=== PATIENT | male | born 1965 | race Caucasian/White ===

== ENCOUNTER → 2019-05-26 13:16 | Outpatient (CLI) | payer BC, SELFPAY ==
[2019-05-26 14:03] LABS: Basophils # 0.1 K/mm3 (0-0.2); Basophils % 0.9 % (0.1-2.0); Eosinophils # 0.2 K/mm3 (0.0-0.4); Eosinophils % 2.9 % (0.1-12.0); Hematocrit 46.9 % (42.0-52.0); Hemoglobin 15.1 g/dL (14.1-18.0); Lymphocytes # 2.1 K/mm3 (0.7-4.5); Lymphocytes % 25.3 % (10-50); Mean Corpuscular HGB Conc 32.2 g/dL (31.8-35.4); Mean Corpuscular Hemoglobin 27.9 pg (27.0-31.2); Mean Corpuscular Volume 86.7 fl (80-94); Mean Platelet Volume 8.5 fl (7.4-10.4); Monocytes # 0.5 K/mm3 (0.1-1.0); Monocytes % 6.3 % (1.7-9.3); Neutrophils # 5.4 K/mm3 (1.8-7.8); Neutrophils % 64.6 % (37.0-80.0); Platelet Count 167 K/mm3 (142-424); Red Cell Distribution Width 12.9 % (11.5-17.5); White Blood Count 8.3 K/mm3 (4.8-10.8)
[2019-05-26 14:29] LABS: Alanine Aminotransferase 32 U/L (12-78); Albumin Level 3.8 gm/dL (3.4-5.0); Alkaline Phosphatase 75 U/L (46-116); Anion Gap 11.5 mEq/L (5-15); Aspartate Amino Transferase 13 U/L (15-37); Bilirubin,Direct 0.2 mg/dL (0.0-0.2); Bilirubin,Total 1.2 mg/dL (0.2-1.0); Blood Urea Nitrogen 11 mg/dL (7-18); Calcium 9.2 mg/dL (8.5-10.1); Carbon Dioxide 30 mmol/L (21.0-32.0); Chloride 105 mmol/L (98-107); Chol/HDL Ratio 3.7 (1-3.5); Cholesterol 162 mg/dL (140-200); Creatinine,Serum 0.89 mg/dL (0.70-1.30); Estimated Glomerular Filt Rate 89 ml/min (>60); GFR (African American) 107 ML/MIN (>60); Glucose 96 mg/dL (74-106); HDL Cholesterol 44 mg/dL (27-67); LDL Cholesterol 97 mg/dL (0-130); Potassium 4.5 mmoL/L (3.5-5.1); Sodium 142 mmol/L (136-145); Total Protein,Serum 6.9 gm/dL (6.4-8.2); Triglycerides 103 mg/dL (30-200); VLDL Cholesterol 21 mg/dL (0-40)
== END ==
PROVIDERS: Visit Provider Physician Assistant
DX: E78.5 Hyperlipidemia, unspecified (principal); I10 Essential (primary) hypertension; I25.10 Atherosclerotic heart disease of native coronary artery without angina pectoris; F17.200 Nicotine dependence, unspecified, uncomplicated
CPT/HCPCS: 36415; 80048; 80061; 80076; 85025

== ENCOUNTER 2024-01-03 12:04 | Outpatient (CLI) | payer BC, SELFPAY ==
[2024-01-03 18:34] LABS: Basophils % 0.5 % (0.1-2.0); Eosinophils # 0.1 K/mm3 (0.0-0.4); Eosinophils % 1.6 % (0.1-12.0); Hematocrit 52.8 % (42.0-52.0); Lymphocytes # 1.8 K/mm3 (0.7-4.5); Lymphocytes % 23.9 % (10-50); Mean Corpuscular HGB Conc 32.3 g/dL (31.8-35.4); Mean Corpuscular Hemoglobin 30.1 pg (27.0-31.2); Mean Corpuscular Volume 93.2 fl (80-94); Mean Platelet Volume 9.4 fl (7.4-10.4); Monocytes # 0.5 K/mm3 (0.1-1.0); Monocytes % 6.1 % (1.7-9.3); Neutrophils # 5.2 K/mm3 (1.8-7.8); Neutrophils % 67.9 % (37.0-80.0); Platelet Count 173 K/mm3 (142-424); Red Blood Count 5.67 M/mm3 (4.60-6.20); Red Cell Distribution Width 13.1 % (11.5-17.5); White Blood Count 7.6 K/mm3 (4.8-10.8)
[2024-01-03 18:35] LABS: Alanine Aminotransferase 36 U/L (12-78); Albumin Level 4.7 g/dl (3.5-5.0); Albumin/Globulin Ratio 1.8 (1.1-1.8); Aspartate Amino Transferase 29 U/L (17-59); Blood Urea Nitrogen 7 mg/dl (9-20); Calcium 9.9 mg/dl (8.4-10.2); Carbon Dioxide 28 mmol/L (22.0-30.0); Cholesterol 136 mg/dl (140-200); Estimated Glomerular Filt Rate 99 ml/min (>60); GFR (African American) 120 ML/MIN (>60); Globulin 2.6 g/dL (1.3-3.2); Glucose 118 mg/dl (74-100); Total Protein,Serum 7.3 g/dl (6.3-8.2); Triglycerides 117 mg/dl (30-150); VLDL Cholesterol 23 mg/dL (0-40)
[2024-01-03 18:37] LABS: Alkaline Phosphatase 89 U/L (38-126); Bilirubin,Total 1.7 mg/dl (0.2-1.3); Chloride 105 mmol/L (98-107); Chol/HDL Ratio 3.4 (1-3.5); HDL Cholesterol 40 mg/dl (40-60); Sodium 141 mmol/L (136-145)
[2024-01-03 18:46] LABS: Direct LDL Cholesterol 68.59 mg/dL (100-129)
[2024-01-03 18:57] LABS: Free Thyroxine Index 3.3 ug/dL (5.93-13.13); T4 (Thyroxine) 9.9 ug/dl (5.53-11.0); Triiodothryronine (T3) Uptake 33 % (23.5-40.5)
[2024-01-03 19:06] LABS: Prostate Specific Ag Screen 0.4 ng/ml (0.0-4.0)
[2024-01-03 19:09] LABS: Hemoglobin A1C 5.3 % (4.0-6.0)
[2024-01-03 19:10] LABS: Thyroid Stimulating Hormone 1.37 uIU/mL (0.465-4.68)
[2024-01-04 09:11] LABS: Intact Parathyroid Hormone 34.3 pg/mL (7.5-53.5)
== END 2024-01-03 23:59 ==
LOC: LAB.DROPOF 01-04 12:04
PROVIDERS: Visit Provider Family Medicine
DX: I25.10 Atherosclerotic heart disease of native coronary artery without angina pectoris (principal); R00.0 Tachycardia, unspecified; I10 Essential (primary) hypertension; R79.89 Other specified abnormal findings of blood chemistry; E78.5 Hyperlipidemia, unspecified; F17.200 Nicotine dependence, unspecified, uncomplicated; Z79.899 Other long term (current) drug therapy; Z12.5 Encounter for screening for malignant neoplasm of prostate
CPT/HCPCS: 80053; 80061; 83036; 83970; 84436; 84443; 84479; 85025; G0103

== ENCOUNTER 2025-07-23 12:49 | Outpatient (CLI) | payer BC, SELFPAY ==
--- OUTSIDE RECORDS SUMMARY | 2025-07-23 12:52 | XMS_ITS | Clinical Summary ---
Author Organization [facility] Address [address] [place] [address] Phone [email or web address] [email or web address] Care Team Providers Care Piercing Specialist Name Role Phone Unavailable Primary Care Provider Unavailabl e Allergies No known active allergies Medications lisinopril (PRINIVIL,ZESTRI L) 20 MG tablet Take 40 mg by mouth 1 (one) time each day. Active bisoprolol (ZEBETA) 5 MG tablet Take 5 mg by mouth 1 (one) time each day. Active atorvastatin (LIPITOR) 20 MG tablet Take 20 mg by mouth 1 (one) time each day. Active Active Problems Problem Noted Date Diagnosed Date Fatigue 11/18/2020 Nonintractable headache 11/18/2020 Sinus congestion 11/18/2020 Rhinorrhea 11/18/2020 Elevated blood-pressure read ing without diagnosis of hypertension 08/29/2014 Overview (04/06/2018): Tobacco use disorder 08/29/2014 Overview (04/06/2018): Carpal tunnel syndrome 08/29/2014 Overview (04/06/2018): Encounters Date Type Department Care Team Description 07/02/2025 Documentation [facility] [address] [place] [address] Patrica Jorgensen PA from Last 3 Months Social History Tobacco Use Types Packs/Day Years Used Date Smoking Tobacco: Every Day Cigarettes 1 44.7 Started: 1981 Smokeless Tobacco: Never Tobacco Cessation:Ready to Q uit: Not Asked; Counseling Given: Not Answered Intimate Partner Violence Answer Date R ecorded Insults You Not on file 02/19/2021 Threatens You Not on file 02/19/2021 Screams at You Not on file 02/19/2021 Physically Hurt Not on file 02/19/2021 Intimate Partner Violence Score Not on file 02/19/2021 Depression Answer Date Recorded PHQ Total Score 0 06/22/2025 Stress Answer Date Recorded Stress in your Life Not on file 09/11/2024 Dealing with Stress 3 09/11/2024 Sex and Gender Information Value Date Recorded Sex Assigned at Not on file Legal Sex Male 9:30 AM CDT Gender Identity Not on file Sexual Orientation Not on file Last Filed Vital Signs Vital Sign Reading Time Taken Comments Blood Pressure 161/83 07/17/2025 8:00 PM EDT Pulse 65 07/17/2025 8:00 PM EDT Temperature 36.2 C (97.1 F) 07/17/2025 8:00 PM EDT Respiratory Rate 18 06/26/2025 5:27 PM EDT Oxygen Saturation 97% 07/17/2025 8:00 PM EDT Inhaled Oxygen Concentration - - Weight 97.5 kg (215 lb) 06/22/2025 5:07 PM EDT Height 175.3 cm (5' 9 ) 06/22/2025 5:07 PM EDT Body Mass Index 31.75 06/22/2025 5:07 PM EDT Plan of Treatment Upcoming Encounters Date Type Department Care Team (Late st Contact Info) Description 07/30/2025 8:00 PM EDT Occ Treatment [facility] [address] [address] João Gunn, PT [address] [place] [address] 07/31/2025 9:30 PM EDT Occ Office Visit [facility] [address] [place] [address] Patrica Jorgensen PA [address] [place] [address] 08/01/2025 8:00 PM EDT Occ Treatment [facility] PT WC/[facility] [address] [place] [address] João Gunn, PT [address] [place] [address] 08/02/2025 7:30 PM EDT [facility] [place] [facility] [address] [place] [address] Patrica Jorgensen, DILLAN [address] [place] [address] Health Maintenance Due Date Last Done Comments CT Colonography 1965 Colonoscopy 1965 Colorectal Cancer Screening Combo 1965 DNA Cologuard 1965 Dental Cleaning/Exam 1965 FIT or FOBT Test 1965 HIV Screening 1965 Hepatitis C Screening 1965 Sigmoidoscopy 1965 Hep B Infection Screening - Triple Screen 1982 Pneumococcal: Ped (0 to 5 Yr s) and At-Risk Member (6 to 64 Yrs) (1 of 2 - PCV) 1983 Tetanus Diphtheria and Pertu ssis Immunization (1 - Tdap) 1983 Lung Cancer Screening 2014 Zoster Immunization (1 of 2) 2014 Annual Preventive Exam 04/11/2020 04/11/2019 Covid-19 Immunization (1 - 2 25 season) 2025 Influenza Immunization (#1) 2025 HIB Immunization Aged Out No longer e ligible based on patient's age to complete this topic HPV Immunization Aged Out No longer e ligible based on patient's age to complete this topic Hepatitis A Immunization Aged Out No longer eligible based on patient's age to complete this topic Hepatitis B Immunization Aged Out No longer eligible based on patient's age to complete this topic Polio Immunization Aged Out No longer eligible based on patient's age to complete this topic Insurance OPT OUT [place]AY [place]
--- OUTSIDE RECORDS SUMMARY | 2025-07-23 12:52 | XMS_ITS | Encounter Summary ---
Author Organization [facility] Address [address] [place] [address] Phone [email or web address] [email or web address] Care Team Providers Care Dynamometer Repairer Name Role Phone Unavailable Primary Care Provider Unavailabl e Encounter Details Date Type Department Care Team (Late st Contact Info) Description 07/02/2025 Documentation [place] [address] [facility] [address] [place] [address] Patrica Jorgensen PA [address] [place] [address] Social History Tobacco Use Types Packs/Day Years Used Date Smoking Tobacco: Every Day Cigarettes 1 44.7 Started: 1980 Smokeless Tobacco: Never Intimate Partner Violence Answer Date R ecorded [...] on file Sexual Orientation Not on file documented as of this encounter Progress Notes * DILLAN Sanchez - 07/02/2025 8:48 PM EDT TM with calcified left lung nodule on shoulder xray. Advised to f/u PCP for f/u and possible CXR. Also needs f/u for HBP; advised/discussed d/c tobacco and avoid stimulants. documented in this encounter Plan of Treatment Upcoming Encounters Date Type Department Care Team (Late st Contact Info) Description 07/30/2025 8:00 PM EDT Occ Treatment [facility] [address] [place] [phone] João Gunn, PT [address] [place] [phone] 07/31/2025 9:30 PM EDT [facility] [place] [address] [facility] [place] [phone] Patrica Jorgensen PA [address] [place] [address] 08/01/2025 8:00 PM EDT [facility] [address] [place] [address] João Gunn, PT [address] [place] [phone] 08/02/2025 7:30 PM EDT Occ Office Visit [facility] [address] [place] [phone] Patrica Jorgensen PA [address] [place] [address] documented as of this encounter Visit Diagnoses Not on filedocumented in this encounter
--- NOTE | 2025-07-23 13:00 | CA_ITS ---
APPROVED REPORT EXAM: Comprehensive 2D, Doppler, and color-flow Echocardiogram Cloth Finishing Range Operator Chief: Mayela Diez CRT Ht: 5 ft 9 in Wt: 219lbs BSA: 2.15 BP: 184/88 mmHg Indications: Dizziness and Vertigo, CAD, Hyperlipidemia, Hypertension/HDD 2D Dimensions LA Volume 42.40 mL LA Volume Index 19.30 mL/m2 (M/F) 16-34 M-Mode Dimensions RVDd 2.82 cm (0.9-2.6) LA Diam 3.44 cm (1.9-4.0) LVDd 4.83 cm (3.5-5.7) LVDs 2.66 cm (3.5-5.7) IVSd 1.21 cm (0.6-1.1) PWd 1.33 cm (0.6-1.1) EF (Teich) 76.20% FS 44.90% EDV (Teich) 109.10 mL ESV (Teich) 26.00 mL LV Diastology E Decel Time 173 (160-240 msec) E/A Ratio 1.13 MED A' 9.30 cm/s LAT A' 11.00 cm/s Aortic Valve ELIANA Index 1.00 cm2/m2 AoV Peak Taj. 245.0 (50-130 cm/s) AO Peak GR. 23.90 mmHg AO Mean GR. 14.70 (<5 mmHg) AO VTI 55.0 (18-25 cm) ELIANA (VTI) 2.20 (2.5-4.5 cm2) Mitral Valve MV A Velocity 106.0 (40-130 cm/s) E/A Ratio 1.13 Tricuspid Valve TR P. Velocity 169.00 cm/s RAP Estimate 10.00 mmHg RVSP 21.40 mmHg Left Ventricle The left ventricle is normal size. Left ventricular systolic function is normal. The left ventricular ejection fraction is within the normal range. There is normal left ventricular wall thickness. There is normal LV segmental wall motion. The left ventricular diastolic function is normal. LVEF is 55% Right Ventricle The right ventricle is normal size. The right ventricular systolic function is normal. Atria The left atrium size is normal. The right atrium size is normal. There is no color Doppler evidence of interatrial shunt. Aortic Valve The aortic valve opens well. Aortic sclerosis is present, but no evidence of hemodynamically significant aortic stenosis. ELIANA by continuity equation is 2.2 cm2. Peak velocity 2.3 m/s. Mean AV gradient is 13 mmHg. Max AV gradient is 22 mmHg. No aortic regurgitation is present. Mitral Valve The mitral valve is normal in structure. No evidence of mitral valve stenosis. Trace mitral regurgitation is present. Tricuspid Valve The tricuspid valve leaflets are thin and pliable. Trace tricuspid regurgitation. There is insufficient TR jet to estimate RVSP. Pulmonic Valve The pulmonary valve is grossly normal in structure. Trace pulmonic valve regurgitation is present. Great Vessels The aortic root is normal in size. IVC is normal in size and collapses >50% with inspiration. Pericardium There is no pericardial effusion. Other Information Study Quality: Fair Conclusion Normal biventricular systolic function. Aortic sclerosis is present, but no evidence of hemodynamically significant (ELIANA by continuity equation is 2.2 cm2. Peak velocity 2.3 m/s. Mean AV gradient is 13 mmHg. Max AV gradient is 22 mmHg). Electronically signed by : Charlene Sy MD 07/24/2025 13:13:28
== END 2025-07-23 23:59 | disposition home or self-care (01) ==
LOC: RT 12:50
PROVIDERS: PCP Internal Medicine; Visit Provider Nurse Practitioner Family
DX: I35.8 Other nonrheumatic aortic valve disorders (principal); I25.10 Atherosclerotic heart disease of native coronary artery without angina pectoris; I10 Essential (primary) hypertension; R42 Dizziness and giddiness
CPT/HCPCS: 93306

== ENCOUNTER 2025-08-17 07:44 | Outpatient (CLI) | payer OTHER, SELFPAY ==
--- NOTE | 2025-08-17 07:55 | MR_ITS ---
FINAL REPORT TECHNIQUE: Multiplanar and multisequence imaging of the shoulder was obtained without contrast. CLINICAL HISTORY: RT SHOULDER PAIN COMPARISON: None FINDINGS: Bones and joints: There is no acute fracture, edema, or pathologic marrow replacement. Acromioclavicular joint degenerative disease is present and there is osteophytosis which narrows the supraspinatus outlet. Rotator cuff: There is tendinopathy of the supraspinatus and infraspinatus tendons. No full-thickness tear is seen in either tendon. The subscapularis tendon is intact. There is significant atrophy of the subscapularis muscle, etiology unclear. Labrum: The biceps labral complex is intact. No labral tear is identified. The inferior glenohumeral ligament is intact. There is proximal biceps tendon thinning and attenuation, likely secondary to tendinosis. Other: There is no significant joint effusion. Remaining soft tissues are within normal limits. IMPRESSION: 1. Rotator cuff tendinopathy without full-thickness tears. 2. Significant atrophy in the subscapularis muscle, etiology unclear. 3. Significant acromioclavicular degenerative disease. 4. Proximal biceps tendon thinning and attenuation, likely tendinosis. Reviewed, Interpreted and Dictated by Lesvia Rivera MD Transcribed by Carla Sanders Authenticated and [facility]
== END 2025-08-17 23:59 | disposition home or self-care (01) ==
LOC: RAD 07:45
PROVIDERS: PCP Internal Medicine; Visit Provider Physician Assistant
DX: M67.911 Unspecified disorder of synovium and tendon, right shoulder (principal); M62.511 Muscle wasting and atrophy, not elsewhere classified, right shoulder; M19.011 Primary osteoarthritis, right shoulder; R93.6 Abnormal findings on diagnostic imaging of limbs
CPT/HCPCS: 73221

== ENCOUNTER 2025-08-22 09:18 | Outpatient (CLI) | payer BC, SELFPAY ==
--- OUTSIDE RECORDS SUMMARY | 2025-06-28 05:46 | XMS_ITS | Continuity of Care Document ---
Author Organization [facility] Phone Care Team Providers Care Packer Sausage And Wiener Name Role Phone MARTA MANDIE Primary Care MARTA MANDIE Unavailable MARIA LUISA CASTANON Admitting MARIA LUISA CASTANON Primary Attending RESULTS Patient: KIRAN Chase JR Date of : 1965 1 LABORATORY RESULTS Information is not available LABORATORY NARRATIVE RESULTS Information is not available RADIOLOGY RESULTS ORDER 100: HAND LT 3V (LOINC : 38743-5) ORDER DATE: June 26, 2025 11:06:00 PM [facility] PERFORMING LAB: [address] [id number] Final Result Date: June 4:14:[address] [address] Name: HELGA BECK Exam Date: 06/26/2025 : 1965 Age 60 years Gender: M Physician: MARIA LUISA CASTANON Facility: [facility] Facility HSV: Outpatient Exam: HAND LT 3V LEFT HAND: 3 Views CLINICAL INDICATION: Male, 60 years old. bilateral shoulder pain and 5th digit hand pain COMPARISON: None. Findings: There is no fracture or dislocation. There is mild joint space narrowing of the proximal fifth interphalangeal joint. There is no visible osseous erosion. There is no radiopaque foreign body. Impression: Mild degenerative changes of the proximal fifth interphalangeal joint. Electronically signed by: Sandy Urena MD 06/27/2025 12:14 AM EDT RP Dictated By: Sandy Urena Transcribed By: Transcribed On: 06/27/2025 12:14 AM Electronically signed by: Sandy Urena 06/27/2025 Thank you for referring HELGA BECK to . Legally authenticated by DEMAR PACHECO 2025-06-27 00:14:58 ORDER 200: SHOULDER COMP MIN 2 VWS LT (LOINC: 52094-1) ORDER DATE: June 26, 2025 11:06:00 PM [facility] PERFORMING LAB: [address] [id number] Final Result Date: June 4:15:[address] [address] Name: HELGA BECK Exam Date: 06/26/2025 : 1965 Age 60 years Gender: M Physician: MARIA LUISA CASTANON Facility: [facility] Facility HSV: Outpatient Exam: SHOULDER COMP MIN 2 VWS LT Left shoulder: 3 views CLINICAL INDICATION: Male, 60 years old. bilateral shoulder pain and 5th digit hand pain COMPARISON: None. Findings: There is no fracture or dislocation. There is moderate degenerative change of the acromioclavicular joint. Calcified left upper lung granuloma is noted. Impression: Moderate degenerative changes of the acromioclavicular joint. Electronically signed by: Sandy Urena MD 06/27/2025 12:15 AM EDT RP Dictated By: Sandy Urena Transcribed By: Transcribed On: 06/27/2025 12:15 AM Electronically signed by: Sandy Urena 06/27/2025 Thank you for referring HELGA BECK to . Legally authenticated by DEMAR PACHECO 2025-06-27 00:15:26 ORDER 300: SHOULDER COMP MIN 2 VWS RT (LOINC: 53700-4) ORDER DATE: June 26, 2025 11:06:00 PM [facility] PERFORMING LAB: [facility] [address] [facility] [id number] Final Result Date: June 4:15:42 AM [facility] [address] [place] [address] Name: HELGA BECK Exam Date: 06/26/2025 : 1965 Age 60 years Gender: M Physician: MARIA LUISA CASTANON Facility: [facility] Facility HSV: Outpatient Exam: SHOULDER COMP MIN 2 VWS RT Right shoulder: 3 views CLINICAL INDICATION: Male, 60 years old. bilateral shoulder pain and 5th digit hand pain COMPARISON: None. Findings: There is no fracture or dislocation. There is moderate degenerative change of the acromioclavicular joint. Impression: Moderate degenerative changes of the acromioclavicular joint. Electronically signed by: Sandy Urena MD 06/27/2025 12:15 AM EDT RP Dictated By: Sandy Urena Transcribed By: Transcribed On: 06/27/2025 12:15 AM Electronically signed by: Sandy Urena 06/27/2025 Thank you for referring HELGA BECK to . Legally authenticated by DEMAR PACHECO 2025-06-27 00:15:42 PATHOLOGY NARRATIVE RESULTS Information is not available MICROBIOLOGY RESULTS No Micro Labs/Results Exist for Patient BLOOD ADMIN RESULTS Information is not available MEDICATIONS HOME MEDICATIONS Status RXNORM NDC Medication Dose Route Frequency Dates Comments Reported By Updated By Drug Treatment Unknown DISCHARGE MEDICATIONS Status RXNORM NDC Medication Dose Route Frequency Dates Dis pense Data Comments Physician Updated By No Discharge Medication Info rmation Available INPATIENT MEDICATIONS Status RXNORM NDC Medication Dose Route Frequency Rat e Quantity Dates Indication Dispense Data Comments Physician Updated By No Inpatient Medication Info rmation Available SOCIAL HISTORY HEALTH CONCERNS Problems Concern Status Health Concern problem infor mation not available. Smoking Status Status Years Used Consumed packs p er day Health Concern smoking histo ry information not available. Family History Concern Status Health Concern family histor y information not available. ENCOUNTERS ENCOUNTER INFORMATION Reason for Visit X RAY Admission June 26, 2025 10:55:00 PM [facility] [address] [facility] [address] Discharge June 26, 2025 10:55:00 PM [facility] DISCHARGED TO HOME OR SELF CARE ENCOUNTER DIAGNOSES Notes information is not che ilable. Code System Diagnosis Onset Date Diagnosis information is not available. ABSTRACT DIAGNOSES Code System Diagnosis Updated By Abatement Date M25.511 ICD10 PAIN IN RIGHT SHOULDER [id number] on June 28, 2025 9:45:43 AM [facility] M25.512 ICD10 PAIN IN LEFT SHOULDER [id number] 2 on June 28, 2025 9:45:43 AM [facility] M79.642 ICD10 PAIN IN LEFT HAND [id number] on June 28, 2025 9:45:43 AM [facility] M19.011 ICD10 PRIMARY OSTEOART HRITIS, RIGHT SHOULDER [id number] on June 28, 2025 9:45:43 AM [facility] M19.012 ICD10 PRIMARY OSTEOART HRITIS, LEFT SHOULDER [id number] on June 28, 2025 9:45:43 AM [facility] M19.042 ICD10 PRIMARY OSTEOART HRITIS, LEFT HAND [id number] on June 28, 2025 9:45:43 AM [facility] W19.XXXD ICD10 UNSPECIFIED FALL , SUBSEQUENT ENCOUNTER [id number] on June 28, 2025 9:45:43 AM [facility] CARE TEAM Care Packer Sausage And Wiener Role MANDIE LOZANO Primary Care MANDIE LOZANO Referring MARIA LUISA CASTANON Admitting MARIA LUISA CASTANON Primary Attending CARE TEAM CARE mail handlers supervisor Role on Team Location Telecom Status Start Date End Odilon e Updated By MARTA LOCKWOOD Referring normal 2024 4:00:00 AM [facility] June 26, 2025 10:55:00 PM [facility] [id number] on June 26, 2025 11:05:01 PM [facility] MARTA LOCKWOOD PCP normal 2024 4:00:00 AM [facility] June 26, 2025 10:55:00 PM [facility] [id number] on June 26, 2025 11:05:01 PM [facility] LG GRIMALDO Attending normal June 26, 2025 4:00:00 AM [facility] June 26, 2025 10:55:00 PM [facility] [id number] on June 26, 2025 11:05:01 PM [facility] LG GRIMALDO Admitting normal June 26, 2025 4:00:00 AM [facility] June 26, 2025 10:55:00 PM [facility] [id number] on June 26, 2025 11:05:01 PM [facility]
--- NOTE | 2025-08-22 09:30 | CA_ITS ---
FINAL REPORT CLINICAL HISTORY: HTN COMPARISON: None FINDINGS: Aorta velocity: 113 cm/sec Right kidney: 11.8 cm. No evidence of hydronephrosis or mass. Right intrarenal RI: 0.48-0.54 Right renal artery velocity: 148 cm/sec. Right RAR (Renal artery-Aortic Ratio): 1.3 Left Kidney: 11.6 cm. No evidence of hydronephrosis or mass. Left intrarenal RI: 0.54-0.59 Left renal artery velocity: 185 cm/sec. Left RAR (Renal Artery-Aortic Ratio): 1.64 IMPRESSION: No evidence of significant renal artery stenosis in the right renal artery. Less than 60% diameter stenosis of the left renal artery. CT angiogram or postcontrast MR angiogram would be more sensitive for evaluation of possible renal artery stenosis. Reviewed, Interpreted and Dictated by Lesvia Rivera MD Transcribed by Carla Sanedrs Authenticated and [facility]
--- OUTSIDE RECORDS SUMMARY | 2025-08-22 09:33 | XMS_ITS | Clinical Summary ---
Author Organization [facility] Address [address] [place] [address] Phone [email or web address] [email or web address] Care Team Providers Care Marble Chip Terrazzo Worker Name Role Phone Unavailable Primary Care Provider [...] Encounters Date Type Department Care Team Description 07/31/2025 [facility] [address] [place] [address] Renee Barfield, BINDU 07/25/2025 Orders Only [facility] 1999 [facility] [address] [place] [address] Raman Velasquez ARRT Bilateral shoulder pain, unspecified chronicity; Fall, subsequent encounter; Left hand pain 07/02/2025 Documentation [facility] [address] [place] [address] Patrica Jorgensen PA from Last 3 Months Social History Tobacco Use Types Packs/Day Years Used Date Smoking Tobacco: Every Day Cigarettes 1 44.8 Started: 1980 Smokeless Tobacco: Never Tobacco Cessation:Ready [...] 06/22/2025 5:07 PM EDT Plan of Treatment Health Maintenance Due Date Last Done Comments CT Colonography 1965 Colonoscopy 1965 Colorectal Cancer Screening Combo 1964 DNA Cologuard 1964 Dental Cleaning/Exam 1964 FIT or FOBT Test 1964 HIV Screening 1965 Hepatitis C Screening 1964 Sigmoidoscopy 1964 Hep B Infection Screening - Triple Screen 1982 Pneumococcal: 50+ Years (1 o f 2 - PCV) 1983 Tetanus Diphtheria and [...] on patient's age to complete this topic Procedures Procedure Name Priority Date/Time Associated Diagnosis Comments AMB REFERRAL TO IMAGING Routine 08/07/2025 9:59 AM EDT Bilateral shoulder pain, unspecified chronicity Fall, subsequent encounter Left hand pain from Last 3 Months Results * Ambulatory referral to Imaging (08/07/2025 9:59 AM EDT) Patrica GRIMALDO OUTPATIENT REFERRAL ORDERABL ES Final Result from Last 3 Months Insurance OPT [place] [address]
--- OUTSIDE RECORDS SUMMARY | 2025-08-22 09:33 | XMS_ITS | Encounter Summary ---
Author Organization [facility] Address [address] [place] [address] Phone [email or web address] [email or web address] Care Team Providers Care Gl Accountant Name Role Phone Unavailable Primary Care Provider Unavailabl e Encounter Details Date Type Department Care Team (Late st Contact Info) Description 07/02/2025 Documentation [place] [address] Clinic [address] [place] [address] Patrica Jorgensen PA [address] [place] [address] Social History Tobacco Use Types Packs/Day Years Used Date Smoking Tobacco: Every Day Cigarettes 1 44.8 Started: 1980 Smokeless Tobacco: Never Intimate Partner [...] documented in this encounter Plan of Treatment Not on file documented as of this encounter Visit Diagnoses Not on filedocumented in this encounter
--- OUTSIDE RECORDS SUMMARY | 2025-08-22 09:33 | XMS_ITS | Encounter Summary ---
Author Organization [facility] Address [address] [place] [address] Phone CareEverywhereSuppor [email or web address] Care Team Providers Care Utility Bill Collection Clerk Name Role Phone Unavailable Primary Care Provider Unavailabl e Encounter Details Date Type Department Care Team (Late st Contact Info) Description 07/25/2025 Orders Only [facility] [place] [address] [facility] [address] [place] [address] Raman Velasquez, ARRT [address] [place] [address] Bilateral shoulder pain, unspecified chronicity; Fall, subsequent encounter; Left hand pain Social History Tobacco Use Types Packs/Day Years [...] on file documented as of this encounter Plan of Treatment Not on file documented as of this encounter Procedures Procedure Name Priority Date/Time Associated Diagnosis Comments AMB REFERRAL TO IMAGING Routine 08/07/2025 9:59 AM EDT Bilateral shoulder pain, unspecified chronicity Fall, subsequent encounter Left hand pain documented in this encounter Results * Ambulatory referral to Imaging (08/07/2025 9:59 AM EDT) us Patrica GRIMALDO OUTPATIENT REFERRAL ORDERABL ES Final Result documented in this encounter Visit Diagnoses Diagnosis Bilateral shoulder pain, unspecified chronicity Fall, subsequent encounter Left hand pain Pain in soft tissues of limb documented in this encounter
--- OUTSIDE RECORDS SUMMARY | 2025-08-22 09:33 | XMS_ITS | Encounter Summary ---
Author Organization [facility] Address [address] [place] [address] Phone [email or web address] [email or web address] Care Team Providers Care Podiatric Assistant Name Role Phone Unavailable Primary Care Provider Unavailabl e Encounter Details Date Type Department Care Team (Late st Contact Info) Description 07/31/[address] [address] Renee Barfield, EMT Social History Tobacco Use Types Packs/Day Years [...] on file documented as of this encounter Miscellaneous Notes * Telephone Encounter - Renee Barfield, BINDU - 07/31/2025 3:40 PM EDT TM called stating he is currently off work on STD d/t Hypertension. TM does not know when he will be released back to work. Occ appt's cancelled until TM calls with release note. documented in this encounter Plan of Treatment Not on file documented as of this encounter Visit Diagnoses Not on filedocumented in this encounter
[2025-08-22 10:06] LABS: Hematocrit 46.4 % (42.0-52.0); Hemoglobin 15.9 g/dL (14.1-18.0); Immature Granulocytes % 0.3 %; Mean Corpuscular HGB Conc 34.3 g/dL (31.8-35.4); Mean Corpuscular Hemoglobin 29.6 pg (27.0-31.2); Mean Corpuscular Volume 86.4 fl (80-94); Nucleated Red Blood Cells % 0 %; Platelet Count 190 K/mm3 (142-424); Red Blood Count 5.37 M/mm3 (4.60-6.20); Red Cell Distribution Width-SD 38.5 fL; White Blood Count 7.7 K/mm3 (4.8-10.8)
--- NOTE | 2025-08-22 10:30 | US_ITS ---
FINAL REPORT TECHNIQUE: Sonographic images of the kidneys and retroperitoneum were obtained in the longitudinal and transverse planes. CLINICAL HISTORY: I10 - Essential (primary) hypertension FINDINGS: The right kidney measures 11.3 cm in lkln-qw-tctu length. No hydronephrosis, mass, or stone. Cortical echogenicity and thickness are normal. The left kidney measures 12.1 cm in dzuh-nr-svvc length. No hydronephrosis, mass, or stone. Cortical echogenicity and thickness are normal. IMPRESSION: Morphologically normal kidneys bilaterally. Reviewed, Interpreted and Dictated by Lesvia Rivera MD Transcribed by Tierra Calhoun Authenticated and [facility]
[2025-08-22 10:48] LABS: Alanine Aminotransferase 23 U/L (12-78); Albumin Level 4.2 g/dl (3.5-5.0); Alkaline Phosphatase 72 U/L (38-126); Anion Gap 10.9 mEq/L (5-15); Aspartate Amino Transferase 22 U/L (17-59); Bilirubin,Direct 0.2 mg/dl (0.0-0.4); Bilirubin,Indirect 1.5 mg/dL (0.0-0.9); Bilirubin,Total 1.7 mg/dl (0.2-1.3); Bilirubin,Unconjugated 1.5 mg/dL (0.0-1.1); Blood Urea Nitrogen 15 mg/dl (9-20); Calcium 9.5 mg/dl (8.4-10.2); Carbon Dioxide 33 mmol/L (22.0-30.0); Chloride 99 mmol/L (98-107); Cholesterol 152 mg/dl (140-200); Creatinine,Serum 1.00 mg/dl (0.66-1.25); Estimated Glomerular Filt Rate 76 ml/min (>60); GFR (African American) 92 ML/MIN (>60); Glucose 109 mg/dl (74-100); HDL Cholesterol 39 mg/dl (40-60); Magnesium 1.8 mg/dl (1.6-2.3); Potassium 3.9 mmoL/L (3.5-5.1); Sodium 139 mmol/L (136-145); Total Protein,Serum 6.5 g/dl (6.3-8.2); Triglycerides 109 mg/dl (30-150)
[2025-08-22 11:04] LABS: Free T4 (Free Thyroxine) 1.08 ng/dl (0.78-2.19)
[2025-08-22 11:19] LABS: Thyroid Stimulating Hormone 1.85 uIU/mL (0.465-4.68)
== END 2025-08-22 23:59 | disposition home or self-care (01) ==
LOC: RT 09:19
PROVIDERS: PCP Internal Medicine; Visit Provider Nurse Practitioner Family
DX: I70.1 Atherosclerosis of renal artery (principal); I10 Essential (primary) hypertension; R42 Dizziness and giddiness; E78.5 Hyperlipidemia, unspecified; I25.10 Atherosclerotic heart disease of native coronary artery without angina pectoris
CPT/HCPCS: 36415; 76770; 80048; 80061; 80076; 83735; 84439; 84443; 85025; 93976

== ENCOUNTER 2025-10-09 12:47 | Outpatient (CLI) | payer BC, SELFPAY ==
--- NOTE | 2025-10-09 | CA_ITS ---
APPROVED REPORT Exam: Pharmacologic Technologist: Aimee Evans Stress Nurse: Saloni IRBY, RN Ht: 5 ft 10 in Wt: 223 lbs BSA: 2.19 m2 HR: 76 bpm BP: 166/84 mmHg Indications: Fatigue, Atypical Angina, Coronary artery disease Stress Test Details Test: Lexiscan HR Resting HR: 76 bpm Max Heart Rate (APMHR): 159.659426 bpm Max HR Achieved: 96 bpm Target HR (85% APMHR): 135.947402 bpm % of APMHR: 60.38 Recovery HR: 86 bpm BP Resting BP: 166.0/84.0 mmHg Max BP: 157.0/91.0 mmHg Recovery BP: 145.0/85.0 mmHg ECG Stress ECG Conclusion Symptoms: None Arrhythmias/Ectopy: PAC/PVC ST-T Changes: Less than 0.[address] segment changes Electronically signed by : Charlene Sy MD 10/16/2025 13:06:09
--- OUTSIDE RECORDS SUMMARY | 2025-10-09 12:50 | XMS_ITS | Clinical Summary ---
Author Organization [facility] Address [address] [place] [id number] Phone [email or web address] Care Team Providers Care Hi Lift Operator Name Role Phone Unavailable Primary Care Provider [...] Type Department Care Team Description 07/31/2025 Telephone [facility] [address] [place] [address] Renee Barfield, BINDU 07/25/2025 Orders Only [facility] [address] [place] [address] Raman Velasquez ARRT Bilateral shoulder pain, unspecified chronicity; Fall, subsequent encounter; Left hand pain from Last 3 Months Social History Tobacco Use Types Packs/Day Years Used Date Smoking Tobacco: Every Day Cigarettes 1 44.9 Started: 1980 Smokeless Tobacco: Never Tobacco Cessation:Ready [...] 04/11/2020 04/11/2019 Covid-19 Immunization (1 - 2 025-26 season) 2025 Influenza Immunization (#1) 2025 HIB [...]
--- NOTE | 2025-10-09 13:00 | NM_ITS ---
APPROVED REPORT Exam: Nuclear Stress Test Indication: hypertension..high cholesterol..tobacco user..family hx Patient Location: Outpatient Stress Tech: Aimee Evans [place] Tech:Yamilex Aranda, ARRT, RT (R)(N) Ht: 5 ft 9 in Wt: 220 lbs HR: 74 bpm BP: 166/84 mmHg BSA: 2.15 m2 TID: 1.17 BMI: 32.4 History: hypertension..high cholesterol..tobacco user..family hx Procedure: Patient received 0.4 mg of intravenous Lexiscan, resting heart rate 74 bpm, resting blood pressure 166/84 mmHg, with Lexiscan maximum heart rate achieved was 96 bpm which is 85 % of the maximum predicted heart rate and blood pressure was 157/91 mmHg. With Lexiscan, patient denied any complaint of chest pain. Cardiac Stress and Resting SPECT Images: Cardiac Stress and Resting SPECT images were obtained using technetium 99m Myoview 32.9 mCi stress and 10.46 mCi at rest. Raw images demonstrate significant soft tissue overlap with the cardiac borders. This may affect diagnostic interpretation of the study findings. Resting and stress imaging in supine positions demonstrate a medium sized, mild, tapered perfusion defect in the basal to mid inferior LV kilpatrick. This is no longer visualized with prone stress imaging. Findings are suggestive of diaphragmatic attenuation. Gated imaging demonstrates normal global LV systolic function. LVEF is calculated at 60%. Conclusion: Diaphragmatic attenuation is present. No evidence of fixed or reversible perfusion defects. Gated imaging demonstrates normal global LV systolic function. LVEF is calculated at 60%. Electronically signed by : Charlene Sy MD 10/16/2025 12:49:05
[2025-10-09] MEDS: SODIUM CHLORIDE 0.9% 10ML SYR (RAD ONLY) 10 ML IV ×2 (14:10)
[2025-10-09] MEDS: ISOTOPE MYOVIEW (PER STUDY) 1 DOSE IV (14:10)
[2025-10-09 14:21] VITALS: BP 166/84; PULSE 76; RESP 14
== END 2025-10-09 23:59 | disposition home or self-care (01) ==
LOC: RAD 12:48
PROVIDERS: PCP Internal Medicine; Visit Provider Nurse Practitioner Family
DX: I25.118 Atherosclerotic heart disease of native coronary artery with other forms of angina pectoris (principal); E78.00 Pure hypercholesterolemia, unspecified; I49.1 Atrial premature depolarization; I49.3 Ventricular premature depolarization; Z72.0 Tobacco use
CPT/HCPCS: 78452; 93017; 93018; A9502; J2785